=== PATIENT | male | born 1940 | race Caucasian/White ===

== ENCOUNTER 2023-06-13 18:21 | Emergency (ER) | payer MEDICARE, OTHER, SELFPAY ==
[2023-06-13 18:22] VITALS: BP 102/69; BMI 22.8
--- NOTE | 2023-06-13 19:03 | ED.GENMED ---
History of Present Illness
General
Chief Complaint: Cough
Time Seen by Provider: 06/13/23 18:41
Travel History
Have you had any contact with someone who has COVID-19?: No
Do you have any symptoms of coronavirus? Fever > 100 degrees, chills, cough, shortness of breath, sore throat, loss of taste or smell, muscle aches, or headache?: No
History of Present Illness
History of Present Illness:
82-year-old male presents to the emergency department for evaluation of cough, chest congestion, tactile fevers. Symptoms been ongoing for the past 24 hours. His is similar symptoms. Denies any chest pain or dyspnea at this time. He does
take methotrexate and prednisone for rheumatoid arthritis
Past History
Past History
ED Past Medical History: CAD, Hypercholesterolemia, Hypothyroidism and Other (angioedema)
ED Past Surgical History: Other (hernia)
Social History
Tobacco: Former smoker
Alcohol: Occasional
Personal:
Living: with family
Review of Systems
Review of Systems
Allergies reviewed?: Yes
All Other Systems: ROS reviewed and negative except as documented in HPI and ROS
Phy Exam
Physical Exam
Physical Exam:
GEN: Well appearing, NAD, WDWN
HEENT: Oral mucosa moist, no scleral icterus
Cardiac: Regular rate and rhythm, no murmurs
Lung: No respiratory distress, no tachypnea, diminished left lower lobe breath sounds
MSK: No gross deformity or injuries
Skin: Good color, no pallor or jaundice, no rashes
Neuro: AO x3, moves all extremities freely
Psych: Calm, cooperative
Course
Orders/Labs/Results
Orders:
Orders
06/13/23 18:53
CR Chest - 2 Views Urgent
Comment:
Reason For Exam: cough, diminished LL lung sounds
06/13/23 18:59
COVID-19 Antigen Urgent
Source: Nasal Swab
Influenza A+B Rapid Molecular Urgent
BLAS Source: Nasal Swab
Specimen Description:
06/13/23 20:21
LevoFLOXacin [Levaquin] 750 mg PO NOW STA
Vital Signs
Initial and Last Documented VS:
Initial Vital Signs
Temp Pulse Resp BP Pulse Ox
98.6 F 91 16 102/69 97
06/13/23 18:22 06/13/23 18:22 06/13/23 18:22 06/13/23 18:22 06/13/23 18:22
Last Documented Vital Signs
Temp Pulse Resp BP Pulse Ox
98.6 F 91 16 102/69 97
06/13/23 18:22 06/13/23 18:22 06/13/23 18:22 06/13/23 18:22 06/13/23 18:22
MDM/Problems Addressed
MDM/Problems Addressed:
Patient is clinically well-appearing. His chest x-ray shows a left lower lobe infiltrate. Will cover with levofloxacin as he is immunocompromised with the modulating meds on rheumatoid arthritis. He will follow-up with his inspector plating tomorrow
regarding his next dosing. He is no longer on amiodarone given that he is on methotrexate would like to avoid beta-lactam class.
*Critical Care Note
Total Time (30-74mins, 75-104mins- exclusive of procedures): Not Applicable
ED Attending Note
-
Portions of this chart may have been created with voice recognition software.� Occasional wrong word or��sound alike� substitutions may have occurred due to the inherent limitations of voice recognition software.
Discharge Plan
Departure
Patient Disposition: Home (Routine Discharge)
Date of Disposition: 06/13/23
Time of Disposition: 20:22
Patient with high blood pressure during this ER visit?: No
Discharge Problem:
Community acquired pneumonia
Instructions: Pneumonia, Adult (DC)
Prescriptions:
New
levofloxacin 750 mg tablet
750 mg PO DAILY 4 Days Qty: 4 0RF
No Action
metformin 1,000 MG tablet
500 mg PO QPM
zolpidem 10 MG tablet
10 mg PO HSPRN PRN (Reason: insomnia)
finasteride 5 MG tablet
5 mg PO HS
levothyroxine 150 MCG tablet
150 mcg PO DAILY
tamsulosin 0.4 MG capsule
0.4 mg PO HS
cholecalciferol (vitamin D3) 2,000 UNITS tablet
2,000 units PO HS
atorvastatin 80 mg Tablet
80 mg PO QPM
PreserVision AREDS-2 250-90-40-1 mg Capsule
1 tab PO BID
Medical Marijuana
0.5 tab PO HS
Rx Instructions:
PATIENT USING GUMMY AND TAKES HALF A GUMMY AT BEDTIME
Eliquis 5 mg tablet
5 mg PO BID
Hold Instructions: Resume on 10/21/22.
amiodarone [Pacerone] 200 mg Tablet
200 mg PO BID Qty: 60 0RF
metoprolol succinate 25 mg Tablet Extended Release 24 Hr
25 mg PO DAILY Qty: 30 0RF
furosemide [Lasix] 20 mg tablet
20 mg PO DAILY Qty: 30 11RF
Referrals:
Britta Leggett PA-C [Family Provider] -
Activity Restrictions/Additional Instructions:
Discuss with your inspector plating regarding your next dose of methotrexate
Interventions
Interventions:
*Risk Screen - Suicide Last Done: 06/13/23 18:22
*General Assessment Last Done: 06/13/23 19:01
*Neglect/Abuse Screening Last Done: 06/13/23 18:22
ED- Fall Risk Assessment Last Done: 06/13/23 19:02
*ED COVID-19 Vaccine History Last Done: 06/13/23 18:22
*Nursing Disposition Last Done: 06/13/23 20:39
ED- Pulmonary Assessment Last Done: 06/13/23 19:02
Discharge Date and Time
Discharge Date/Time: 06/13/23 20:40
[2023-06-13 19:28] LABS: COVID-19 Antigen Negative (Negative)
[2023-06-13] MEDS: LEVAQUIN 750 MG PO (20:29)
== END 2023-06-13 20:40 | disposition home or self-care (01) ==
LOC: EMR 18:21
PROVIDERS: Physician Assistant; EMERGENCY PHYSICIAN Emergency Medicine; FAMILY PHYSICIAN Physician Assistant
DX: J18.9 Pneumonia, unspecified organism (principal); D84.9 Immunodeficiency, unspecified; M06.9 Rheumatoid arthritis, unspecified; Z11.52 Encounter for screening for COVID-19; Z87.891 Personal history of nicotine dependence
CPT/HCPCS: 99284; 71046; 87502; 87811

== ENCOUNTER → 2023-11-16 07:57 | Outpatient (REF) | payer MEDICARE, OTHER, SELFPAY | LOC: HWRAD 07:57 | PROVIDERS: ATTENDING PHYSICIAN Specialist; FAMILY PHYSICIAN Physician Assistant | DX: R93.89 Abnormal findings on diagnostic imaging of other specified body structures (principal) | CPT/HCPCS: 76700 ==

== ENCOUNTER → 2023-11-24 10:34 | Outpatient (REF) | payer MEDICARE, OTHER, SELFPAY ==
[2023-11-24 13:03] LABS: Hematocrit 36.9 % (39.0-52.0); Hemoglobin 12.2 g/dL (13.0-18.0); Mean Corp Hgb Conc. 33.1 g/dL (33.0-37.0); Mean Corpuscular Hgb 32.2 pg (27.0-31.0); Mean Corpuscular Volume 97.4 fL (80.0-94.0); Mean Platelet Volume 11.1 fL (7.4-10.4); Platelet Count 200 10^3/uL (130-400); Red Blood Cell Count 3.79 10^6/uL (4.70-6.10); Red Cell Dist. Width 14.4 % (11.5-14.5); White Blood Cell Count 8.9 10^3/uL (4.8-10.8)
[2023-11-24 14:04] LABS: Blood Urea Nitrogen 19 mg/dl (9-20); Calcium 9.4 mg/dl (8.4-10.2); Carbon Dioxide 33 mmol/L (22-30); Chloride 98 mmol/L (98-107); Glucose 275 mg/dl (70-99); Potassium 4.2 mmol/L (3.5-5.1); Sodium 136 mmol/L (135-145); eGFR > 60.00
[2023-11-24 14:34] LABS: TSH Reflex To Free T4 0.78 uIU/ml (0.47-4.68)
== END ==
LOC: HWLAB 10:34
PROVIDERS: ATTENDING PHYSICIAN Urology; FAMILY PHYSICIAN Physician Assistant; REFERRING PHYSICIAN Student in an Organized Health Care Education/Training Program
DX: R31.0 Gross hematuria (principal); N28.1 Cyst of kidney, acquired; Z00.00 Encounter for general adult medical examination without abnormal findings; E11.9 Type 2 diabetes mellitus without complications; E03.9 Hypothyroidism, unspecified
CPT/HCPCS: 36415; 80048; 84443; 85027

== ENCOUNTER → 2023-11-29 10:28 | Outpatient (REF) | payer MEDICARE, OTHER, SELFPAY | LOC: HWRAD 10:28 | PROVIDERS: ATTENDING PHYSICIAN Urology; FAMILY PHYSICIAN Physician Assistant | DX: R31.0 Gross hematuria (principal); N28.1 Cyst of kidney, acquired | CPT/HCPCS: 74178; Q9967 ==

== ENCOUNTER 2024-01-01 07:38 | Emergency (ER) | payer MEDICARE, OTHER, SELFPAY ==
[2024-01-01 07:41] VITALS: BP 139/63
[2024-01-01 07:50] VITALS: BMI 22.7
--- NOTE | 2024-01-01 07:53 | ED.GENMED ---
History of Present Illness
General
Chief Complaint: Heart Rate Problem
Source: patient
Exam Limitations: none
Time Seen by Provider: 01/01/24 07:44
Nursing documentation reviewed up to this point in time: agreed with
History of Present Illness
History of Present Illness:
Patient is an 83-year-old male with past medical history of A-fib, V. tach stents, hypertension type 2 diabetes hyperlipidemia, ventricular tachycardia followed by Dr. DelT oro presents to the ER via EMS. EMS reports the patient was just in [place]
for 2 weeks and got home yesterday. He was called by his manufacturing coordinator taking that he was in rapid A-fib while he was in [place]. He did have palpitations and felt a little short of breath. Last night however he was very short of breath when lying
down. He stopped taking his diuretic while in [place] however has not missed a dose of his anticoagulation, Eliquis. He denies any lower extremity swelling chest pain.
Patient is currently on metoprolol 25 mg twice a day for heart rate Lasix 20 mg a day though he was not taking that his manufacturing coordinator nurse advised taking an extra dose last night. And he is on Eliquis 5 mg twice daily and has not missed a dose as
documented. He is on additional medications including thyroid medication and others .
Past History
Past History
ED Past Medical History: CAD, Hypercholesterolemia, Hypothyroidism and Other (angioedema)
ED Past Surgical History: Other (hernia)
Social History
Tobacco: Former smoker
Alcohol: Occasional
Personal:
Living: with family
Review of Systems
Review of Systems
Allergies reviewed?: Yes
Other source history: family
All Other Systems: ROS reviewed and negative except as documented in HPI and ROS
Constitutional: Reports no symptoms
Respiratory: Reports trouble breathing
Cardiac: Reports palpitations; Denies chest pain
ABD/GI: Reports no symptoms; Denies nausea or vomiting
Musculoskeletal: Reports no symptoms
Skin: Reports no symptoms
Neurological: Reports no symptoms
Phy Exam
General Physical Exam
General Presentation: no apparent distress
General age: appears stated age
General Skin: warm and dry
General Habitus: normal
General Mental: alert
General Hydration: appears well hydrated
Cardiovascular Exam
Cardiovascular Exam: regular rate/rhythm, no murmur and normal peripheral pulses
Pulmonary Exam
Pulmonary Exam: lungs clear and no respiratory distress
Neurological Exam
Neurological Exam: alert and oriented x3
Musculoskeletal Exam
Musculoskeletal Exam: full ROM and other (No lower extremity swelling calf tenderness on exam)
Skin Exam
Skin Exam: normal color and warm/dry
Psychiatric Exam
Psychiatric Exam: normal mood/affect
Course
Orders/Labs/Results
Orders:
Orders
01/01/24 07:40
ECG [Electrocardiogram (*1)] Urgent
Reason for Study: Palpitations
01/01/24 07:41
EKG- Treatment ONCE
01/01/24 07:46
Cardiac Monitoring- Treatment ONCE
EKG- Treatment ONCE
IV Insert/Care/Rem.- Treatment PRN
01/01/24 07:47
CR Chest - 2 Views Urgent
Comment:
Reason For Exam: sob
01/01/24 08:23
Complete Blood Count/With Diff Urgent
Comprehensive Metabolic Panel Urgent
NT-proBNP Urgent
TSH Reflex To Free T4 Urgent
Comment: ADD ON
Troponin I Urgent
01/01/24 10:29
Add On- LAB Urgent
Tests Added?: tsh w/ reflexive t4
Abnormal Lab Results
01/01/24
08:23
RBC 3.73 L 10^6/uL
(4.70-6.10)
Hgb 11.5 L g/dL
(13.0-18.0)
Hct 34.7 L %
(39.0-52.0)
RDW 15.2 H %
(11.5-14.5)
Absolute Lymphs (auto) 0.8 L 10^3/uL
(1.2-3.4)
Lymphocytes % 13.1 L %
(20.5-51.1)
Glucose 176 H mg/dl
(70-99)
01/01/24 08:23
01/01/24 08:23
Vital Signs
Initial and Last Documented VS:
Initial Vital Signs
Pulse Resp BP Pulse Ox
67 18 139/63 96
01/01/24 07:41 01/01/24 07:41 01/01/24 07:41 01/01/24 07:41
Last Documented Vital Signs
Temp Pulse Resp BP Pulse Ox
98.1 F 60 19 135/85 99
01/01/24 07:51 01/01/24 11:53 01/01/24 11:53 01/01/24 10:16 01/01/24 11:53
[employer] [employer] consulted with Physician
[employer] consulted with physician?: Yes
Name of Physician Consulted: DR Ashley
MDM/Problems Addressed
Differential Diagnosis Includes:
Not limited to congestive heart failure arrhythmia less likely PE as patient has not missed his Eliquis dose
MDM/Problems Addressed:
As documented patient is an 83-year-old male with history of V. tach has AICD pacemaker in place history of A-fib on Eliquis recently traveled to [place] over the past several weeks has not missed his Eliquis dose but had intermittent episodes of
shortness of breath while traveling. This morning he was short of breath which is what prompted him to come to the ER. He presents however awake alert no acute distress nontachypneic nonhypoxic lungs are clear. He is in normal sinus rhythm here
in the ER with no complaints shortness of breath. Lungs are clear low BNP. Patient is on metoprolol 25 mg twice daily Lasix 20 though he was not taking Lasix and you are up he did double his dose last night as per the staff at his cardiology
office. He also is on his 5 mg Eliquis twice a day has not missed a dose. Patient has a monitored he remains asymptomatic. Pacemaker was interrogated does show an episode of atrial tach on December 29 for 1 hour and 2-minute around 10 AM. In
addition he had an episode this morning at 7:16 AM. He has remained asymptomatic. Case reviewed with manufacturing coordinator on-call Dr. Phoenix will have patient increase Lopressor from 25 twice daily to 50 twice daily with close outpatient follow-up
cardiology in the next week.
*Radiology
Radiology exam reviewed: radiology read reviewed
*Pulse Oximetry
Patient hypoxic: no
*EKG
Interpreted by ED Provider?: Yes
Interpretation: abnormal
Heart Rate: 62
Rate: normal
Rhythm: sinus
Ischemia: non-specific ST changes
*Critical Care Note
Total Time (30-74mins, 75-104mins- exclusive of procedures): Not Applicable
Patient Management
Discussion with other providers: Extension Edger (DR Phoenix)
ED Attending Note
-
Portions of this chart may have been created with voice recognition software.� Occasional wrong word or��sound alike� substitutions may have occurred due to the inherent limitations of voice recognition software.
Discharge Plan
Departure
Patient Disposition: Home (Routine Discharge)
Date of Disposition: 01/01/24
Time of Disposition: 10:46
Patient with high blood pressure during this ER visit?: No
Condition: Fair
Covid-19: Not Applicable
Discharge Problem:
Acute dyspnea
Instructions: Palpitations (DC), Shortness of Breath, Adult ED, BLOOD PRESSURE
Prescriptions:
No Action
metformin 1,000 MG tablet
500 mg PO QPM
zolpidem 10 MG tablet
10 mg PO HSPRN PRN (Reason: insomnia)
finasteride 5 MG tablet
5 mg PO HS
levothyroxine 150 MCG tablet
150 mcg PO DAILY
tamsulosin 0.4 MG capsule
0.4 mg PO HS
cholecalciferol (vitamin D3) 2,000 UNITS tablet
2,000 units PO HS
atorvastatin 80 mg Tablet
80 mg PO QPM
PreserVision AREDS-2 250-90-40-1 mg Capsule
1 tab PO BID
Medical Marijuana
0.5 tab PO HS
Rx Instructions:
PATIENT USING GUMMY AND TAKES HALF A GUMMY AT BEDTIME
Eliquis 5 mg tablet
5 mg PO BID
amiodarone [Pacerone] 200 mg Tablet
200 mg PO BID Qty: 60 0RF
metoprolol succinate 25 mg Tablet Extended Release 24 Hr
25 mg PO DAILY Qty: 30 0RF
furosemide [Lasix] 20 mg tablet
20 mg PO DAILY Qty: 30 11RF
levofloxacin 750 mg tablet
750 mg PO DAILY 4 Days Qty: 4 0RF
Referrals:
Geoff Del Toro DO [Active] -
Tamra Trevizo MD [Family Provider] -
Activity Restrictions/Additional Instructions:
As discussed increase your metoprolol from 25 mg twice a day to 50 mg twice a day. Continue your Lasix and Eliquis as previously scheduled. Call cardiology office Wednesday for an appointment next week for reevaluation of your symptoms. Return if
any worsening of symptoms including worsening shortness of breath palpitations lightheadedness dizziness chest pain or any further concerns.
Interventions
Interventions:
*Risk Screen - Suicide Last Done: 01/01/24 07:47
*General Assessment Last Done: 01/01/24 07:47
*Neglect/Abuse Screening Last Done: 01/01/24 07:47
ED- Fall Risk Assessment Last Done: 01/01/24 08:00
*ED COVID-19 Vaccine History Last Done: 01/01/24 07:47
*Nursing Disposition Last Done: 01/01/24 11:53
ED- Cardiac Assessment Last Done: 01/01/24 08:00
ED- Pulmonary Assessment Last Done: 01/01/24 08:00
Discharge Date and Time
Discharge Date/Time: 01/01/24 11:35
Print Language: [place] LUCIAN
[2024-01-01 08:26] VITALS: BP 131/71
[2024-01-01 08:40] LABS: % Basophils 0.2 % (0-2); % Eosinophils 2.5 % (0-6); % Immature Granulocytes 0.5 % (0-0.5); % Lymphocytes 13.1 % (20.5-51.1); % Monocytes 8.6 % (1.7-9.3); % Neutrophils 75.1 % (42.2-75.2); Absolute Eosinophils 0.2 10^3/uL (0-0.7); Absolute Lymphocytes 0.8 10^3/uL (1.2-3.4); Absolute Monocytes 0.6 10^3/uL (0.1-0.6); Absolute Neutrophils 4.8 10^3/uL (1.4-6.5); Hematocrit 34.7 % (39.0-52.0); Hemoglobin 11.5 g/dL (13.0-18.0); Mean Corp Hgb Conc. 33.1 g/dL (33.0-37.0); Mean Corpuscular Hgb 30.8 pg (27.0-31.0); Mean Platelet Volume 10.1 fL (7.4-10.4); Nucleated Red Blood Cells % 0 % (-); Platelet Count 226 10^3/uL (130-400); Red Blood Cell Count 3.73 10^6/uL (4.70-6.10); Red Cell Dist. Width 15.2 % (11.5-14.5); White Blood Cell Count 6.4 10^3/uL (4.8-10.8)
[2024-01-01 08:52] LABS: ALT (SGPT) 39 U/L (0-50); AST (SGOT) 29 U/L (17-59); Albumin 4.4 g/dl (3.5-5.0); Alkaline Phosphatase 77 U/L (38-126); Blood Urea Nitrogen 19 mg/dl (9-20); Calcium 9.4 mg/dl (8.4-10.2); Carbon Dioxide 29 mmol/L (22-30); Chloride 101 mmol/L (98-107); Estimated Creatinine Clearance 84 ml/min; Glucose 176 mg/dl (70-99); Potassium 3.9 mmol/L (3.5-5.1); Sodium 140 mmol/L (135-145); Total Protein 6.5 g/dl (6.3-8.2); eGFR > 60.00
[2024-01-01 09:00] VITALS: BP 119/98
[2024-01-01 09:04] LABS: NT-proBNP 336 pg/ml; Troponin I < 0.012 ng/ml
[2024-01-01 10:16] VITALS: BP 135/85
[2024-01-01 11:21] LABS: TSH Reflex To Free T4 3.59 uIU/ml (0.47-4.68)
== END 2024-01-01 11:35 | disposition home or self-care (01) ==
LOC: EMR 07:38
PROVIDERS: Nurse Practitioner; EMERGENCY PHYSICIAN Emergency Medicine; FAMILY PHYSICIAN Internal Medicine
DX: R06.00 Dyspnea, unspecified (principal); I48.91 Unspecified atrial fibrillation; I10 Essential (primary) hypertension; E11.9 Type 2 diabetes mellitus without complications; E78.00 Pure hypercholesterolemia, unspecified; E03.9 Hypothyroidism, unspecified; I25.10 Atherosclerotic heart disease of native coronary artery without angina pectoris; Z79.01 Long term (current) use of anticoagulants; Z79.899 Other long term (current) drug therapy; Z87.891 Personal history of nicotine dependence; Z95.810 Presence of automatic (implantable) cardiac defibrillator
CPT/HCPCS: 99283; 71046; 80053; 83880; 84443; 84484; 85025; 93005

== ENCOUNTER → 2024-02-29 12:52 | Outpatient (REF) | payer MEDICARE, OTHER, SELFPAY | LOC: HWRCS 12:52 | PROVIDERS: ATTENDING PHYSICIAN Nuclear Medicine Nuclear Cardiology; FAMILY PHYSICIAN Internal Medicine | DX: I42.9 Cardiomyopathy, unspecified (principal); I08.0 Rheumatic disorders of both mitral and aortic valves | CPT/HCPCS: 93306 ==

== ENCOUNTER → 2024-08-03 09:48 | Outpatient (REF) | payer MEDICARE, OTHER, SELFPAY ==
[2024-08-03 10:33] LABS: % Basophils 0.4 % (0-2); % Immature Granulocytes 0.5 % (0-0.5); % Lymphocytes 16.5 % (20.5-51.1); % Neutrophils 72.6 % (42.2-75.2); Absolute Eosinophils 0.2 10^3/uL (0-0.7); Absolute Immature Granulocytes 0.1 10^3/uL (0-0.05); Absolute Lymphocytes 1.6 10^3/uL (1.2-3.4); Absolute Monocytes 0.8 10^3/uL (0.1-0.6); Hematocrit 42.1 % (39.0-52.0); Hemoglobin 13.6 g/dL (13.0-18.0); Mean Corp Hgb Conc. 32.3 g/dL (33.0-37.0); Mean Corpuscular Hgb 31.7 pg (27.0-31.0); Mean Corpuscular Volume 98.1 fL (80.0-94.0); Mean Platelet Volume 9.9 fL (7.4-10.4); Nucleated Red Blood Cells % 0 % (-); Platelet Count 236 10^3/uL (130-400); Red Blood Cell Count 4.29 10^6/uL (4.70-6.10); Red Cell Dist. Width 13.7 % (11.5-14.5); White Blood Cell Count 9.6 10^3/uL (4.8-10.8)
[2024-08-03 10:48] LABS: INR 1.24; PT 16.1 Sec (11.4-14.6)
[2024-08-03 10:50] LABS: ALT (SGPT) 33 U/L (0-50); AST (SGOT) 29 U/L (17-59); Albumin 4.6 g/dl (3.5-5.0); Alkaline Phosphatase 65 U/L (38-126); Blood Urea Nitrogen 18 mg/dl (9-20); Calcium 9.9 mg/dl (8.4-10.2); Carbon Dioxide 31 mmol/L (22-30); Chloride 102 mmol/L (98-107); Glucose 144 mg/dl (70-99); Magnesium 2.2 mg/dl (1.6-2.3); Potassium 4.4 mmol/L (3.5-5.1); Sodium 144 mmol/L (135-145); Total Bilirubin 0.9 mg/dl (0.2-1.3); Total Protein 7.1 g/dl (6.3-8.2); eGFR > 60.00
== END ==
LOC: SDSPAT 09:48
PROVIDERS: ATTENDING PHYSICIAN Internal Medicine Cardiovascular Disease; FAMILY PHYSICIAN Internal Medicine; OTHER PHYSICIAN Nuclear Medicine Nuclear Cardiology
DX: I48.0 Paroxysmal atrial fibrillation (principal)
CPT/HCPCS: 36415; 75572; 80053; 83735; 85025; 85610; 86850; 86900; 86901; 93005; Q9967

== ENCOUNTER 2024-08-16 09:32 | Day surgery (SDC) | payer MEDICARE, OTHER, SELFPAY ==
[2024-08-03 10:05] VITALS: BMI 24.6
[2024-08-16] VITALS (11 sets, daily range): BP systolic 96–146; BP diastolic 57–93
--- NOTE | 2024-08-16 08:09 | ITS.CL.ABL ---
Design And Sales Consultant - Ablation
Ablation
Procedure Report:
ELECTROPHYSIOLOGIC STUDY AND POSSIBLE ABLATION
DATE: August 16, 2024
Primary Care Provider: Dr. Tamra Trevizo
Primary Hand Welt Butter: Dr. Geoff Del Toro
INDICATION:
Symptomatic Atrial Fibrillation.
Paroxysmal
HISTORY: See H and P.
Symptomatic AF, poorly controlled with attempted medical therapy.
He Is referred for electrophysiologic consultation regarding paroxysmal atrial fibrillation, symptomatic. He is referred from Dr. Del Toro. Symptoms include disturbing palpitations. He also has a history of coronary artery disease, prior myocardial
infarction, heart failure with reduced ejection fraction ejection fraction as low as 30%, since improved with revascularization and medical therapy.��ICD was placed October 19, 2022.
He has also had a clinical syndrome of heart failure with mildly reduced ejection fraction and volume overload requiring diuretic therapy.
CHADSVASc = 5 (CHF, HTN, Age, Vasc Dz). He is maintained on Eliquis 5 mg twice daily. He currently is on metoprolol for rate control, previously had been maintained on amiodarone but that was stopped after period of maintaining sinus rhythm. Atrial
fibrillation has reoccurred and he is symptomatic.
HAS-BLED: 1
Age
CHADSVASc: 6
Heart failure with reduced ejection fraction, LVEF as low as 30%, improved after coronary artery revascularization and medical therapy. NYHA class II
HTN
Age
DM
Vascular Dz: prior MO
PRESENTING RHYTHM: SR
HISTORY: See H and P.
Symptomatic AF, poorly controlled with attempted medical therapy.
ANTICOAGULATION: Apixaban 5 mg twice daily
'TIME-OUT': called and confirmed.
SEDATION/ANESTHESIA: provided via the anesthesia department using general anesthesia.
PROCEDURE:
Ultrasound Guidance with real-time visualization of needle insertion and vessel patency performed by sc for femoral venous Vascular Access.
Under real-time US guidance, the needle was advanced with negative pressure into the vein. The needle was seen entering the vessel lumen with a good return of dark red flow, the syringe was removed, non-pulsatile, dark red blood low was noted and
the wire was passed without difficulty, then the needle was removed. US confirmed the wire was in the vein, not going into an artery,
Images were taken and saved for the patient's permanent record. Imaging findings typical femoral venous anatomy. Direct visualization of needle puncture into the femoral vein was observed and recorded.
A decapolar CS catheter was placed within the CS for mapping and pacing.
The intracardiac ultrasound catheter was positioned in the RA for continuous intracardiac ultrasound imaging.
Heparin bolus and infusion to target ACT at 300 -350 seconds was administered. Transseptal puncture was performed. This entailed advancing a sheath with dilator into the superior vena cava and withdrawing both (monitoring intracardiac ultrasound,
fluoroscopy and tip pressure) with the tip oriented toward the atrial septum. The fossa ovalis was engaged (indicated by sudden displacement of the sheath tip as well as tenting of the fossa seen on intracardiac ultrasound).
The [employer] transseptal system was used. Left atrial catheter position was confirmed by echocardiographic imaging and fluoroscopy followed by RF delivery using the [employer] system resulting in successful LA access with pressure monitoring
demonstrating LA pressure waveforms (LA mean pressure [ ] mm Hg). The sheath was advanced over the dilator and positioned in the left atrium.
The Escalona Grid multipolar mapping catheter was initially positioned through the transseptal sheath for high density mapping.
Geometry and voltage mapping was performed using the Escalona multipolar grid catheter. Ensite-X was utilized for three-dimensional electroanatomical mapping.
A 3-D map was created using Ensite-X in Voxel mode. A 3-D reconstructed CT image was compared to the 3-D Navex map to assist in anatomic evaluation, mapping and ablation.
The [employer] PFA catheter and system was used for cardiac ablation. Catheter positioning was guided and confirmed using both I.C.E. and fluoroscopy.
PV isolation approach was used to electrically isolate each PV ostia (LSPV, LIPV, RSPV, RIPV).
Additional energy applications/additional ablation set was required to accomplish wide area circumferential ablation around each of the pulmonary vein sets and additionally ablation to accomplish LA posterior wall ablation.
Remapping with the Escalona multipolar grid catheter found that all PVPs were eliminated at each vein demonstrating entrance block. Also pacing from the multipolar mapping catheter around the the circumference of the ostia was performed at 10 ma and
2.0 msec output to assess for exit block. This demonstrated electrical isolation at each of the pulmonary vein ostia (LSPV, LIPV, RSPV, RIPV). There is also entrance and exit block at the LA posterior wall.
Programmed electrostimulation including burst atrial pacing as well as delivery of atrial decremental extrastimuli down to atrial ERP failed to induce any sustained arrhythmias.
I.C.E. :
Pre-Ablation Post-Ablation
LVEF: 55 % 55 %
WMA: none none
Pericardial effusion: none none
COMPLICATIONS:
None
SUMMARY:
- Mapping and ablation to isolate the PVs
- Additional AF ablation set after PVI.
- 3-D Electroanatomical Mapping
- Intracardiac Ultrasound
- Ultrasound guidance for vascular access
Post ablation, I discussed today's findings and results with the patient's , Jeana.
RECOMMENDATIONS:
- Observe in monitored bed.
- Maintain oral anticoagulation.
- Continue [ ]
- Office visit with [ ] in [ ] months.
- Continue cardiovascular care with [ ]
Copy to:
Dr. Tamra Trevizo
Dr. Geoff Del Toro
[2024-08-16 10:15] LABS: Glucose - Point of Care 139 mg/dl (70-99)
[2024-08-16 12:44] LABS: ACT-LR - POC 316 Seconds (116-155)
[2024-08-16 12:59] LABS: ACT-LR - POC 284 Seconds (116-155)
--- NOTE | 2024-08-16 16:42 | W.PN.UPDATE ---
Update Note
Progress Note Update
Pt seen post PFA. Right groin site with vascade closure, no ht/bleeding. OOB ambulating, urinating without difficulty. Post EKG APaced 50s, no acute changes. Resume eliquis tonight at usual time. Followup with Dr. Del Toro as scheduled. Home today if
groin site/tele remain stable
== END 2024-08-16 16:45 | disposition home or self-care (01) ==
LOC: CATH 09:32
PROVIDERS: ATTENDING PHYSICIAN Internal Medicine Cardiovascular Disease; FAMILY PHYSICIAN Internal Medicine; OTHER PHYSICIAN Nuclear Medicine Nuclear Cardiology
DX: I48.91 Unspecified atrial fibrillation (principal); I25.10 Atherosclerotic heart disease of native coronary artery without angina pectoris; I25.2 Old myocardial infarction; I11.0 Hypertensive heart disease with heart failure; I50.22 Chronic systolic (congestive) heart failure; E11.9 Type 2 diabetes mellitus without complications; E03.9 Hypothyroidism, unspecified; Z87.891 Personal history of nicotine dependence; Z95.5 Presence of coronary angioplasty implant and graft; Z79.899 Other long term (current) drug therapy; Z79.01 Long term (current) use of anticoagulants; Z79.890 Hormone replacement therapy; Z79.84 Long term (current) use of oral hypoglycemic drugs; E78.5 Hyperlipidemia, unspecified; I48.0 Paroxysmal atrial fibrillation; I42.9 Cardiomyopathy, unspecified; K58.9 Irritable bowel syndrome, unspecified; M06.9 Rheumatoid arthritis, unspecified; K76.0 Fatty (change of) liver, not elsewhere classified; N40.0 Benign prostatic hyperplasia without lower urinary tract symptoms; Z79.52 Long term (current) use of systemic steroids; Z86.0100 Personal history of colon polyps, unspecified
CPT/HCPCS: C1894; C1769; C1730; C1892; 82962; 85347; 86900; 86901; 93005; 93656; 93657; C1732; C1733; C1760; C1766

== ENCOUNTER → 2024-09-04 08:36 | Outpatient (REF) | payer MEDICARE, OTHER, SELFPAY | LOC: RAD 08:36 | PROVIDERS: ATTENDING PHYSICIAN Urology; FAMILY PHYSICIAN Internal Medicine | DX: N28.1 Cyst of kidney, acquired (principal) | CPT/HCPCS: 74170; Q9967 ==

== ENCOUNTER 2025-01-02 17:36 | Emergency (ER) | payer MEDICARE, OTHER, SELFPAY ==
[2025-01-02 17:39] VITALS: BP 141/89
--- NOTE | 2025-01-02 19:04 | ED.SKININJ ---
HPI-Injury
General
Chief Complaint: Skin Surface Trauma
Source: patient
Exam Limitations: none
Time Seen by Provider: 01/02/25 18:24
History of Present Illness-Injury
Initial Injury comments:
84-year-old male presents with laceration to left index finger he sustained today. He cut himself with his razor. He is on blood thinners and is having difficulty getting it to stop bleeding. Last tetanus vaccine was within 3 years. No other
complaints
Past History
Past History
ED Past Medical History: CAD, Hypercholesterolemia, Hypothyroidism and Other (angioedema)
ED Past Surgical History: Other (hernia)
Social History
Tobacco: Former smoker
Alcohol: Occasional
Personal:
Living: with family
Phy Exam
Physical Exam
Physical Exam:
General: Well-appearing male no acute respiratory distress
Skin: 1 cm flap type laceration superficial in nature volar aspect distal portion left index finger mild bleeding no tendon involvement good range of motion left index finger
Neurologic exam: Good sensation left index
Course
Vital Signs
Initial and Last Documented VS:
Initial Vital Signs
Temp Pulse Resp BP Pulse Ox
98.2 F 83 18 141/89 100
01/02/25 17:39 01/02/25 17:39 01/02/25 17:39 01/02/25 17:39 01/02/25 17:39
Last Documented Vital Signs
Temp Pulse Resp BP Pulse Ox
98.2 F 83 18 141/89 100
01/02/25 17:39 01/02/25 17:39 01/02/25 17:39 01/02/25 17:39 01/02/25 17:39
MDM/Problems Addressed
Differential Diagnosis Includes:
The wound was copiously irrigated with saline. Wound care options were discussed with the patient. Given the ongoing bleeding it was decided to close the wound with sutures. The finger was copiously irrigated with saline and anesthetized in a
local fashion use 1% plain lidocaine. 5-0 Prolene sutures were used in a simple interrupted fashion to provide wound edge approximation hemostasis. A total of 4 sutures were required. A dressing was applied. Wound care instructions were given.
Stable for discharge
*Pulse Oximetry
SaO2: 100
Oxygen Mode of Delivery: Room air
Patient hypoxic: no
*Critical Care Note
Total Time (30-74mins, 75-104mins- exclusive of procedures): Not Applicable
ED Attending Note
-
Portions of this chart may have been created with voice recognition software.� Occasional wrong word or��sound alike� substitutions may have occurred due to the inherent limitations of voice recognition software.
Discharge Plan
Departure
Patient Disposition: Home (Routine Discharge)
Date of Disposition: 01/02/25
Time of Disposition: 19:06
Patient with high blood pressure during this ER visit?: No
Discharge Problem:
Laceration
Instructions: Laceration Repair With Stitches (DC)
Prescriptions:
New
cephalexin 500 mg capsule
500 mg PO TID 7 Days Qty: 21 0RF
No Action
zolpidem 10 MG tablet
10 mg PO HSPRN PRN (Reason: insomnia)
finasteride 5 MG tablet
5 mg PO QPM
tamsulosin 0.4 MG capsule
0.4 mg PO HS
cholecalciferol (vitamin D3) 2,000 UNITS tablet
2,000 units PO QPM
atorvastatin 80 mg Tablet
80 mg PO QPM
PreserVision AREDS-2 250-90-40-1 mg Capsule
1 tab PO BID
Medical Marijuana
0.5 tab PO HS
Rx Instructions:
PATIENT USING GUMMY AND TAKES HALF A GUMMY AT BEDTIME
Eliquis 5 mg tablet
5 mg PO BID
furosemide [Lasix] 20 mg tablet
20 mg PO DAILY Qty: 30 11RF
Jardiance 10 mg Tablet
10 mg PO DAILY
metoprolol succinate 25 mg tablet extended release 24 hr
50 mg PO BID
diphenhydramine HCl [Benadryl] 25 mg Capsule
25 mg PO HS PRN (Reason: insomnia)
magnesium 100 mg Tablet
100 mg PO DAILY
prednisone 1 mg Tablet
3 mg PO DAILY
folic acid 1 mg Tablet
1 mg PO DAILY
metformin 500 mg Tablet Extended Release 24 Hr
500 mg PO DAILY
levothyroxine 175 mcg Tablet
175 mcg PO DAILY
methotrexate sodium 2.5 mg Tablet
15 mg PO SA
Referrals:
Tamra Trevizo MD [Family Provider, Internal Medicine]
Activity Restrictions/Additional Instructions:
Have sutures removed in 10 to 12 days. Return if needed. The prescription for an antibiotic was provided in the event this looks infected as you [place] next [place].
Interventions
Interventions:
*Risk Screen - Suicide Last Done: 01/02/25 17:39
*General Assessment Last Done: 01/02/25 17:39
*Neglect/Abuse Screening Last Done: 01/02/25 17:54
*ED COVID-19 Vaccine History Last Done: 01/02/25 17:54
*ED Influenza Vaccine History Last Done: 01/02/25 17:54
ED-Skin Assessment Last Done: 01/02/25 17:54
Discharge Date and Time
Print Language: ROMANSH
== END 2025-01-02 19:15 | disposition home or self-care (01) ==
LOC: EMR 17:36
PROVIDERS: EMERGENCY PHYSICIAN Emergency Medicine; FAMILY PHYSICIAN Internal Medicine
DX: S61.211A Laceration without foreign body of left index finger without damage to nail, initial encounter (principal); W27.8XXA Contact with other nonpowered hand tool, initial encounter; E78.00 Pure hypercholesterolemia, unspecified; E03.9 Hypothyroidism, unspecified; I25.10 Atherosclerotic heart disease of native coronary artery without angina pectoris; Z87.891 Personal history of nicotine dependence; Z79.01 Long term (current) use of anticoagulants
CPT/HCPCS: 12001; 99282

== ENCOUNTER → 2025-02-13 09:14 | Outpatient (REF) | payer MEDICARE, OTHER, SELFPAY | LOC: HWRCS 09:14 | PROVIDERS: ATTENDING PHYSICIAN Nuclear Medicine Nuclear Cardiology; FAMILY PHYSICIAN Internal Medicine | DX: I42.9 Cardiomyopathy, unspecified (principal); I08.0 Rheumatic disorders of both mitral and aortic valves; I48.0 Paroxysmal atrial fibrillation; Z95.810 Presence of automatic (implantable) cardiac defibrillator; Z95.5 Presence of coronary angioplasty implant and graft | CPT/HCPCS: 93306 ==